=== PATIENT | female | born 1985 | race African-American/Black ===

== ENCOUNTER 2016-08-19 07:00 | Emergency (ER) | payer OTHER ==
[~2016-08-19] VITALS: Ht 157.5 cm; Wt 120.2 kg
[~2016-08-19 07:00] MED LIST: 12 HOUR COLD R120 M1 PO; AUGMENTIN 875875 MG PO; BACTRIM DS TAB1 EACH PO; CEFTIN500 MG PO; FLAGYL500 MG PO; HYDRALAZINE 10M10 MG PO; HYDROXYZINE HCL10 M1 PO; HYDROXYZINE PAM50 MG PO; IBUPROFEN 600600 M1 PO; IBUPROFEN 800800 M1 PO; ILOTYCIN1 GM OP; LISINOPRIL-HCT1 EAC1 PO; LISINOPRIL20 MG PO; MUCINEX TA600 MG/TA1 PO; NORCO 5-325 TA1 EACH PO; OMEPRAZOLE 20 M20 M1 PO; PRINIVIL20 M1 PO; ULTRAM 50MG TAB50 MG PO; XANAX 0.25 MG0.25 MG PO; XANAX XR1 MG PO; ZOFRAN ODT4 MG PO; ZPAK PO
[2016-08-19] MEDS ORDERED: GUAIFEN-CODEIN120 ML PO (08:01)
[2016-08-19] MEDS ORDERED: VENTOLIN HFA 1818 GM INH (08:01)
[2016-10-04] MEDS ORDERED: NAPROSYN500 MG PO (23:26)
== END 2016-08-19 08:18 | disposition home or self-care (01) ==
LOC: ER 07:00
DX: J06.9 Acute upper respiratory infection, unspecified (principal); F10.99 Alcohol use, unspecified with unspecified alcohol-induced disorder; I10 Essential (primary) hypertension; F41.9 Anxiety disorder, unspecified; J02.9 Acute pharyngitis, unspecified; Z21 Asymptomatic human immunodeficiency virus [HIV] infection status

== ENCOUNTER 2018-05-28 08:51 | Emergency (ER) | payer OTHER ==
[~2018-05-28] VITALS: Ht 157.5 cm; Wt 117.9 kg
[~2018-05-28 08:51] MED LIST changes: +GUAIFEN-CODEIN120 ML PO; +NAPROSYN500 MG PO; +PREDNISONE 20 M20 MG PO; +VENTOLIN HFA 1818 GM INH
[2018-05-28] MEDS ORDERED: TRIUMEQ TABLET1 EACH PO (09:02)
[2018-05-28] MEDS ORDERED: ROBITUSSIN100 MG/53 PO (09:55)
[2018-05-28] MEDS ORDERED: PROMETH-CODEIN 65 ML PO (09:55)
[2018-05-28] MEDS ORDERED: VENTOLIN HFA 1818 GM INH (09:57)
== END 2018-05-28 11:24 | disposition home or self-care (01) ==
LOC: ER 08:51
DX: J20.8 Acute bronchitis due to other specified organisms (principal); B97.89 Other viral agents as the cause of diseases classified elsewhere; I10 Essential (primary) hypertension; F41.9 Anxiety disorder, unspecified; Z21 Asymptomatic human immunodeficiency virus [HIV] infection status

== ENCOUNTER 2018-07-04 06:04 | Emergency (ER) | payer OTHER ==
[~2018-07-04] VITALS: Ht 157.5 cm; Wt 122.5 kg
[~2018-07-04 06:04] MED LIST changes: +PROMETH-CODEIN 65 ML PO; +ROBITUSSIN100 MG/53 PO; +TRIUMEQ TABLET1 EACH PO
[2018-07-04 06:05] VITALS: BP 189/122
[2018-07-04] MEDS ORDERED: AMOXICILLIN 50500 MG PO (06:54)
[2018-07-04] MEDS ORDERED: MOBIC15 MG PO (06:54)
== END 2018-07-04 07:01 | disposition home or self-care (01) ==
LOC: ER 06:04
DX: J02.0 Streptococcal pharyngitis (principal); I10 Essential (primary) hypertension; F41.9 Anxiety disorder, unspecified

== ENCOUNTER 2019-05-05 09:03 | Emergency (ER) | payer OTHER ==
[~2019-05-05] VITALS: Ht 157.5 cm; Wt 113.4 kg
[~2019-05-05 09:03] MED LIST changes: +AMOXICILLIN 50500 MG PO; +MOBIC15 MG PO
[2019-05-05 09:28] VITALS: BP 167/124
[2019-05-05] MEDS ORDERED: PENICILLIN V P500 MG PO (10:21)
== END 2019-05-05 10:22 | disposition home or self-care (01) ==
LOC: ER 09:03
DX: J02.0 Streptococcal pharyngitis (principal); I10 Essential (primary) hypertension; B20 Human immunodeficiency virus [HIV] disease; F41.9 Anxiety disorder, unspecified; E66.9 Obesity, unspecified; Z68.42 Body mass index [BMI] 45.0-49.9, adult

== ENCOUNTER 2019-07-08 04:05 | Emergency (ER) | payer OTHER ==
[~2019-07-08] VITALS: Ht 157.5 cm; Wt 117.9 kg
[~2019-07-08 04:05] MED LIST changes: +PENICILLIN V P500 MG PO
[2019-07-08 04:06] VITALS: BP 177/104
[2019-07-08] MEDS ORDERED: OMEPRAZOLE40 MG PO (04:15)
[2019-07-08] MEDS ORDERED: LISINOPRIL20 MG PO (04:15)
[2019-07-08 04:34] LABS: ABSOLUTE NEUTROPHILS 3.2 thou/uL (1.4-8.2); BASOPHILS 0.7 % (0.0-2.0); HEMATOCRIT 40.8 % (37.0-47.0); HEMOGLOBIN 13.3 gm/dL (12.0-15.0); LYMPHOCYTES 44.4 % (24.0-44.0); MCH 27.1 pg (26.0-34.0); MCHC 32.5 g/dL (28.0-37.0); MCV 83.3 fL (80.0-100.0); MONOCYTES 10.8 % (1.0-8.0); PLATELET COUNT 303 thou/uL (150-400); POLYS 43.1 % (36.0-66.0); RBC 4.89 mil/uL (4.20-5.00); RDW 14.5 % (10.5-14.5); WBC 7.4 thou/uL (4.0-11.0)
[2019-07-08 04:54] LABS: ANION GAP 7 mmol/L (7-16); BUN 7 mg/dL (7-18); CALCIUM 8.8 mg/dL (8.5-10.1); CHLORIDE 104 mmol/L (98-107); CO2 28 mmol/L (21-32); CREATININE 0.6 mg/dL (0.6-1.0); GLUCOSE 105 mg/dL (74-106); POTASSIUM 3.2 mmol/L (3.5-5.1); SODIUM 139 mmol/L (136-145)
[2019-07-08 05:05] LABS: ALBUMIN 3.2 g/dL (3.4-5.0); MAGNESIUM 1.7 mg/dL (1.8-2.4); SGOT 21 U/L (15-37); SGPT 17 U/L (30-65); TOTAL BILIRUBIN 0.4 mg/dL (<0.1-1.0); TOTAL PROTEIN 8.2 g/dL (6.4-8.2); TROPONIN-I <0.06 ng/mL (<0.06)
[2019-07-08 06:28] LABS: AMP/METHAMP Negative (Negative); BARBITURATES Negative (Negative); BENZODIAZEPINES Negative (Negative); COCAINE Negative (Negative); METHADONE Negative (Negative); OPIATES Negative (Negative); PCP Negative (Negative)
[2019-07-08 07:10] VITALS: BP 142/104
--- NOTE | 2019-07-08 08:41 | EKG ---
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 : 1985 Requested By: Andrea Concepcion Order Number: [id number] MD: Ariel Vee Measurements Intervals [place] Rate: 103 P: 19 KS: 137 QRS: -1 QRSD: 93 T: 73 QT: 337 QTc: 441 Interpretive Statements Sinus tachycardia LVH by voltage Artifact in lead(s) I,II,III,aVR,aVL,aVF,V1 Compared to ECG 10/04/2016 20:49:08 Left ventricular hypertrophy now present T-wave abnormality no longer present Electronically Signed On 07-08-2019 8:41:27 EXCELLENCE MANAGER by Ariel Vee [email or web address] <ELECTRONICALLY SIGNED> By: Ariel Vee MD 07/08/19 [id number] Ariel Vee MD /EPI
[2019-07-08] MEDS ORDERED: CATAPRES0.1 MG PO (14:57)
[2019-07-08 15:14] VITALS: BP 166/92
[2019-07-08] MEDS ORDERED: LORAZEPAM 0.50.5 MG PO (15:16)
[2019-07-08 15:40] VITALS: BP 150/81; BP 166/92
[2019-07-08 15:41] VITALS: BP 150/81
== END 2019-07-08 15:40 | disposition home or self-care (01) ==
LOC: ER 04:05 → EROBS 05:50 → ER 05:50 → EROBS 15:40
PROVIDERS: Emergency Medicine
DX: R07.89 Other chest pain (principal); I10 Essential (primary) hypertension; Z79.899 Other long term (current) drug therapy